=== PATIENT | male | born 1955 | race Hispanic/Latino ===

== ENCOUNTER 2022-11-15 09:22 | Emergency (ER) | payer SELFPAY ==
[2022-11-15] MEDS ORDERED: Ketorolac Tromethamine 30 MG/ML VIAL ONE (09:51)
[2022-11-15] MEDS ORDERED: Ketamine 50 MG/ML (10ML VIAL) ONE (10:31)
== END 2022-11-15 11:38 | disposition home or self-care (01) ==
LOC: CSHERS 09:22
DX: S43.014A Anterior dislocation of right humerus, initial encounter (principal); W14.XXXA Fall from tree, initial encounter
CPT/HCPCS: 96372; 99152; J1885